=== PATIENT | male | born 1990 | race Caucasian/White ===

== ENCOUNTER → 2021-08-23 | Outpatient (CLI) | payer OTHER ==
[2021-08-23 15:18] LABS: EOSINOPHILS % (AUTO) 1 % (0-10); HEMATOCRIT 48 % (40-54); HEMOGLOBIN 16.7 g/dL (13.3-17.7); LYMPHOCYTES % (AUTO) 15 % (12-44); MEAN CORPUSCULAR HEMOGLOBIN 30 pg (25-34); MEAN CORPUSCULAR HGB CONC 35 g/dL (32-36); MEAN CORPUSCULAR VOLUME 86 fL (80-99); MEAN PLATELET VOLUME 9.2 fL (9.0-12.2); MONOCYTES % (AUTO) 9 % (0-12); NEUTROPHILS % (AUTO) 74 % (42-75); PLATELET COUNT 346 10^3/uL (130-400)
[2021-08-23 15:19] LABS: BASOPHILS # (AUTO) 0.1 10^3/uL (0.0-0.1); BASOPHILS % (AUTO) 0 % (0-10); EOSINOPHILS # (AUTO) 0.2 10^3/uL (0.0-0.3); LYMPHOCYTES # (AUTO) 2.2 X 10^3 (1.0-4.0); MONOCYTES # (AUTO) 1.3 X 10^3 (0.0-1.0); NEUTROPHILS # (AUTO) 11.1 X 10^3 (1.8-7.8)
[2021-08-23 15:23] LABS: ATYPICAL LYMPHOCYTES 4 %; BAND NEUTROPHILS 2 %; BASOPHILS % (MANUAL) 0 %; EOSINOPHILS % (MANUAL) 0 %; LYMPHOCYTES % (MANUAL) 10 %; MONOCYTES % (MANUAL) 8 %; NEUTROPHILS % (MANUAL) 76 %
[2021-08-23 15:25] LABS: ALANINE AMINOTRANSFERASE 71 U/L (0-55); ALBUMIN 4.8 GM/DL (3.2-4.5); ALKALINE PHOSPHATASE 88 U/L (40-136); BILIRUBIN,TOTAL 0.5 MG/DL (0.1-1.0); BUN/CREATININE RATIO 27; CALCIUM 10.2 MG/DL (8.5-10.1); CARBON DIOXIDE 26 MMOL/L (21-32); CHLORIDE 100 MMOL/L (98-107); CREATININE SERUM 0.83 MG/DL (0.60-1.30); GFR ESTIMATED 107; GLUCOSE 96 MG/DL (70-105); POTASSIUM 3.9 MMOL/L (3.6-5.0); SODIUM 138 MMOL/L (135-145)
== END ==
LOC: LAB FS 12:20
PROVIDERS: ATTEND Family Medicine
DX: Z00.00 Encounter for general adult medical examination without abnormal findings (principal); R42 Dizziness and giddiness
CPT/HCPCS: 36415; 80053; 85007; 85027

== ENCOUNTER 2022-03-20 21:28 | Emergency (ER) | payer OTHER ==
[~2022-03-20] VITALS: Ht 170.1 cm; Wt 97.5 kg
--- NOTE | 2022-03-20 22:12 | ED General ---
General Chief Complaint: General Problems/Pain Stated Complaint: L ARM NUMBNESS Nursing Triage Note: Pt reports an episode of left arm numbness for 2-3 seconds once and denies it at this time. Pt reports he does have anxiety and appears anxious. VSS. Pt is COVID+ w/o complaints. History of Present Illness Date Seen by Provider: Mar 20, 2022 Time Seen by Provider: 22:07 Initial Comments 31-year-old male recently diagnosed with COVID. Patient comes in due to likely anxiety but he had some left arm numbness tingling and called his mom is a nurse and he is worried about may be cardiac symptoms due to the COVID. Patient not currently having any tingling. No chest pain shortness of breath. Allergies and Home Medications Patient Home Medication List Home Medication List Reviewed: Yes Review of Systems Review of Systems Constitutional: see HPI Past Sguvust-Ymhvvf-Ppjtnx Hx Patient Social History Tobacco Use?: No Use of E-Cig and/or Vaping dev: No Substance use?: No Alcohol Use?: No Pt feels they are or have been: No Physical Exam Vital Signs Vital Signs - First Documented 03/20/22 21:35 Temp 36.9 Pulse 160 Resp 10 B/P (MAP) 187/115 (139) Pulse Ox 98 O2 Delivery Room Air Capillary Refill : Less Than 3 Seconds Height, Weight, BMI Height: '" Weight: lbs. oz. kg; 33.00 BMI Method: General Appearance: WD/WN, Anxious HEENT: PERRL/EOMI Neck: Non Tender, Supple Respiratory: Lungs Clear, Normal Breath Sounds Cardiovascular: Regular Rate, Rhythm, No Murmur Neurologic/Psychiatric: Alert, Normal Mood/Affect Progress/Results/Core Measures Suspected Sepsis SIRS Temperature: Pulse: 160 Respiratory Rate: 10 Blood Pressure 187 /115 Mean: 139 Results/Orders My Orders Orders - HAMIDA SAHNI MD Ekg Tracing (03/20/22 22:12) Vital Signs/I&O 03/20/22 03/20/22 21:35 22:54 Temp 36.9 Pulse 160 98 Resp 10 20 B/P (MAP) 187/115 (139) 168/100 Pulse Ox 98 98 O2 Delivery Room Air Room Air Capillary Refill : Less Than 3 Seconds Blood Pressure Mean: 139 Progress Note : Time: 22:44 Progress Note EKG looks normal. No further pain or symptoms. Discussed with patient that he can follow back up if symptoms return. Otherwise will discharge home with PCM follow-up ECG Initial ECG Impression Date: Mar 20, 2022 Initial ECG Impression Time: 22:43 Initial ECG Rate: 99 Initial ECG Rhythm: Normal Sinus Initial ECG Intervals: Normal Initial ECG Impression: Normal Initial ECG Comparisson: No Previous ECG Available Departure Impression Primary Impression: Left arm pain Additional Impression: COVID-19 Disposition: 01 HOME, SELF-CARE Condition: Stable Departure-Patient Inst. Decision time for Depature: 22:44 Referrals: COURTNEY GARCIA MD (PCP/Family) Primary Care Physician Patient Instructions: Acute Pain, Adult Add. Discharge Instructions: continue to monitor. follow up with pcm. All discharge instructions reviewed with patient and/or family. Voiced understanding. HAMIDA SAHNI MD Mar 20, 2022 22:12
[2022-03-20 22:54] VITALS: BP 168/100
== END 2022-03-20 22:54 | disposition home or self-care (01) ==
LOC: EDUNIT# 21:28 → ER FS 21:30
DX: U07.1 COVID-19 (principal); M79.605 Pain in left leg; Z73.0 Burn-out; Z28.310 Unvaccinated for COVID-19
CPT/HCPCS: 93005